=== PATIENT | female | born 1930 | race Two or more races ===

== ENCOUNTER 2020-01-29 10:09 | Emergency (ER) | payer OTHER ==
[~2020-01-29] VITALS: Ht 160 cm; Wt 58.5 kg
== END 2020-01-29 14:50 | disposition home or self-care (01) ==
LOC: ER 10:09
DX: S00.33XA Contusion of nose, initial encounter (principal); W18.09XA Striking against other object with subsequent fall, initial encounter; Y93.89 Activity, other specified; Y92.018 Other place in single-family (private) house as the place of occurrence of the external cause; Y99.8 Other external cause status